=== PATIENT | male | born 1975 | race Caucasian/White ===

== ENCOUNTER 2025-08-03 15:22 | Emergency (ER) | payer SELFPAY ==
[2025-08-03 15:39] VITALS: BP 150/87; PULSE 90; RESP 16; TEMP 36.6; O2SAT 100; BMI 27.7
== END 2025-08-03 16:00 | disposition left against medical advice (07) ==
PROVIDERS: Emergency Provider Emergency Medicine
DX: Z53.21 Procedure and treatment not carried out due to patient leaving prior to being seen by health care provider (principal)
CPT/HCPCS: 99281

== ENCOUNTER 2025-08-04 10:59 | Emergency (ER) | payer SELFPAY ==
[2025-08-04 11:11] VITALS: BP 150/89; PULSE 84; RESP 17; TEMP 36.7; O2SAT 99; BMI 28.3
== END 2025-08-04 13:29 | disposition left against medical advice (07) ==
PROVIDERS: Emergency Provider Emergency Medicine
DX: Z53.21 Procedure and treatment not carried out due to patient leaving prior to being seen by health care provider (principal)
CPT/HCPCS: 99281